=== PATIENT | male | born 1995 | race Caucasian/White ===

== ENCOUNTER 2019-12-09 20:15 | Emergency (ER) | payer SELFPAY ==
[2019-12-09 20:19] VITALS: BP 133/77; PULSE 68; RESP 17; TEMP 36.9; O2SAT 98; BMI 21.7
--- NOTE | 2019-12-09 20:47 | ED_ITS ---
HPI - Burn/Smoke Inhalation General: Chief complaint: Burn/Smoke Inhalation Stated complaint: burn Time Seen by Provider: 12/09/19 20:31 History of Present Illness: HPI Narrative: Patient is a 24-year-old male comes to the ED with burn on his abdomen. Patient says he was cooking just prior to arrival and some hot grease splashed on his abdomen. He now has some redness and some blistering. Patient describes having some mild stinging pain does not want any pain medications while here in the ED. Associated symptoms: Deny chest pain, fever(s), headache(s), nausea, neck pain or vomiting Review of Systems Const: Denies: fever(s), chills or fatigue Eyes: Denies: change in vision or eye discomfort ENMT: Denies: throat pain, odynophagia, nasal discharge or nasal congestion Card: Denies: chest pain, palpitations, edema, swelling of feet/ankles, dyspnea on exertion or orthopnea Resp: Denies: dyspnea, productive cough or non-productive cough GI: Denies: abdominal pain, nausea, vomiting, diarrhea, constipation or hematochezia : Denies: flank pain, difficulty urinating, dysuria or hematuria Musc: Denies: neck pain, back pain or extremity swelling Skin/Breast: Reports: new lesions (burn on abdomen); Denies: rash Neuro: Denies: headache(s), numbness in extremities or weakness in extremities Physical Exam Const: COMMON NORMALS: no acute distress, patient oriented x3, healthy appearing and alert GENERAL APPEARANCE: cooperative and comfortable HENMT: COMMON NORMALS: normocephalic HEAD & SCALP: normocephalic MOUTH: Normal oral and palatal mucosa present THROAT: posterior oropharynx normal and uvula midline Neck/C-Spine: COMMON NORMALS: supple GENERAL: Yes normal visual inspection Resp: COMMON NORMALS: normal respiratory effort, No retractions, No use of accessory muscles and clear to auscultation bilaterally AUSCULTATION: clear to auscultation bilaterally Cardio: COMMON NORMALS: regular rate, regular rhythm, S1 normal heart sound present, S2 normal heart sound present, No gallops present (Cardio), No clicks present (Cardio), No murmurs present (Cardio) and Peripheral pulses 2+ throughout RATE: regular rate RHYTHM: regular rhythm HEART SOUNDS: S1 normal heart sound present and S2 normal heart sound present PERIPHERAL PULSES: Peripheral pulses 2+ throughout GI: COMMON NORMALS: Normal to inspection, nondistended, normoactive bowel sounds present, Soft to palpation, non-tender and no masses PALPATION: Yes Soft to palpation : COMMON NORMALS: Yes no CVA tenderness BLADDER/KIDNEY EXAM: Yes no CVA tenderness Back/Pelvis: COMMON NORMALS: no CVA tenderness Extremity: COMMON NORMALS: normal to inspection Neuro: COMMON NORMALS: patient oriented x3 and moves all extremities SENSORIUM/ORIENTATION: Yes alert Skin: NARRATIVE SKIN EXAM: Patient has multiple burn cassidy with some erythema and blistering present on right side of abdomen. Second-degree burn and or partial-thickness burn. Course Vital Signs: Vital signs: Vital Signs Temperature 98.4 F 12/09/19 20:19 Pulse Rate 74 12/09/19 21:04 Respiratory Rate 18 12/09/19 21:04 Blood Pressure 144/75 12/09/19 21:04 Pulse Oximetry 98 12/09/19 21:04 MDM - Burn/Smoke Inhalation MDM Narrative: Medical decision making narrative: Patient is a 24-year-old male who comes to the ED with skin burn on abdomen from cooking grease. Physical exam shows partial-thickness/second-degree burn on right side of the abdomen. Neosporin ointment was applied on suarez while here in the ED. Patient was sent home with a prescription for Neosporin ointment. I placed an order with case management for patient to be referred to wound care clinic to evaluate his burn. Return to ED precautions given and I discussed with patient signs of infection to look for. Patient understood and agreed with plan. Discharge Plan Discharge Patient Disposition: Home Clinical Impression: Second degree burn of abdomen Qualifiers: Encounter type: initial encounter Qualified Code(s): T21.22XA - Burn of second degree of abdominal wall, initial encounter Condition: Stable Prescriptions: New Neosporin ([id number]) 3.5mg-400 unit- 5,000 unit/gram ointment 1 applic TOPICAL BID Qty: 28.3 RF: 0 Discharge Orders: Discharge Order (Routine); Ordered 12/09/19 Ordered By: Tyson Cruz Discharge Diet: Regular Discharge Activity: Increase activity as tolerated Patient Instructions: Partial Thickness Burn (ED) Activity Restrictions/Additional Instructions: Follow-up with medical provider as directed in 7-10 days. Also case management should be contacting you in the next several days to set up an appointment with wound clinic so they can reevaluate burn and see how it is healing. Take medications as prescribed. Apply Neosporin twice a day on burn. Do not pop blisters and allow for them to pop on their own. return to the ER or your medical provider if condition worsens. Please read and understand discharge instructions. If any questions, please ask. Discharge Date/Time: 12/09/19 21:08 Coding Level of Care Code ED Recessing Machine Operator for Monica Smith Exam Comprehensive
[2019-12-09 21:04] VITALS: BP 144/75; PULSE 74; RESP 18; O2SAT 98
--- NOTE | 2019-12-10 10:44 | DCPLANNER ---
gas well drilling manager had message to schedule a follow up appointment for patient with Wound Care. gas well drilling manager called the Wound Care clinic, spoke with Felicia. A follow up appointment was scheduled for patient for Monday, December 16, 2019 at 1:[address] Nguyen. gas well drilling manager called patient and informed patient of the scheduled appointment. Patient stated that he would attend the appointment.
--- NOTE | 2020-01-02 09:57 | DCPLANNER ---
Patient did attend appointment scheduled for 12.16.19 with Wound Care.
== END 2019-12-09 21:08 | disposition home or self-care (01) ==
PROVIDERS: Emergency Provider Physician Assistant
DX: T21.22XA Burn of second degree of abdominal wall, initial encounter (principal); X10.2XXA Contact with fats and cooking oils, initial encounter
CPT/HCPCS: 12345; 99281; 99282

== ENCOUNTER 2019-12-16 12:50 | Outpatient (CLI) | payer SELFPAY | END 2019-12-16 12:51 | disposition home or self-care (01) | LOC: WOUND 12:51 | PROVIDERS: Visit Provider Thoracic Surgery (Cardiothoracic Vascular Surgery) | DX: T21.22XA Burn of second degree of abdominal wall, initial encounter (principal); X08.8XXA Exposure to other specified smoke, fire and flames, initial encounter | CPT/HCPCS: 99212 ==

== ENCOUNTER → 2020-01-16 09:06 | Outpatient (BNVA) | payer OTHER, SELFPAY | PROVIDERS: Visit Provider Nurse Practitioner Family | DX: Z11.59 Encounter for screening for other viral diseases (principal); Z20.828 Contact with and (suspected) exposure to other viral communicable diseases; J06.9 Acute upper respiratory infection, unspecified | CPT/HCPCS: 87635 ==

== ENCOUNTER → 2020-12-24 10:43 | Outpatient (BNVA) | payer OTHER, SELFPAY | PROVIDERS: Visit Provider Nurse Practitioner Family | DX: Z20.822 Contact with and (suspected) exposure to COVID-19 (principal) | CPT/HCPCS: 87635 ==

== ENCOUNTER → 2020-12-28 15:28 | Outpatient (BNVA) | payer SELFPAY | PROVIDERS: Visit Provider Nurse Practitioner Family | DX: Z20.822 Contact with and (suspected) exposure to COVID-19 (principal) | CPT/HCPCS: 87426 ==

== ENCOUNTER → 2022-08-02 10:05 | Outpatient (BNVA) | payer OTHER, SELFPAY | PROVIDERS: PCP Nurse Practitioner Family; Visit Provider Nurse Practitioner Family | DX: R42 Dizziness and giddiness (principal); R53.83 Other fatigue | CPT/HCPCS: 80053; 80061; 84443; 85025 ==

== ENCOUNTER 2022-09-17 18:51 | Emergency (ER) | payer SELFPAY ==
--- NOTE | 2022-09-17 19:22 | XRR_ITS ---
PROCEDURE INFORMATION: Exam: XR Right Foot Exam date and time: 09/17/2022 7:25 PM Age: 27 years old Clinical indication: Injury or trauma; Fall; Swelling (edema); Ankle; Right TECHNIQUE: Imaging protocol: Radiologic exam of the right foot. Views: 3 or more views. COMPARISON: No relevant prior studies available. FINDINGS: Bones/joints: Normal. Soft tissues: Normal. XR/XR foot RT min 3V* [id number] IMPRESSION: No acute findings.
[2022-09-17 19:35] VITALS: BP 116/70; PULSE 64; RESP 12; TEMP 36.8; O2SAT 95; BMI 26.4
--- NOTE | 2022-09-17 19:44 | XRR_ITS ---
PROCEDURE INFORMATION: Exam: XR Right Ankle Exam date and time: 09/17/2022 8:02 PM Age: 27 years old Clinical indication: Injury or trauma; Fall; Swelling (edema); Ankle; Right TECHNIQUE: Imaging protocol: Radiologic exam of the right ankle. Views: 3 or more views. COMPARISON: CR (LOW EXM, ) 09/17/2022 7:25 PM FINDINGS: Bones/joints: Small calcific densities inferior to lateral malleolus may represent acute avulsion(s) or relate to chronic/remote injury. Soft tissues: Soft tissue swelling noted over lateral malleolus. XR/XR ankle RT min 3V* [id number] IMPRESSION: Small calcific densities inferior to lateral malleolus may represent acute avulsion(s) or relate to chronic/remote injury.
--- NOTE | 2022-09-17 19:49 | ED_ITS ---
HPI - Extremity Problem General: Chief complaint: Extremity Injury, Lower Stated complaint: right foot injury Time Seen by Provider: 09/17/22 19:22 Source: patient Mode of arrival: ambulatory Limitations: no limitations History of Present Illness: 19-year-old male states that very before arrival he jumped off roughly 2 foot ledge landed on the ground he states he rolled his right ankle felt a pop in the right ankle he is got swelling over the right lateral portion he states he has pain he rates a 3 out of 10 he states he is able to walk on it but is quite painful is much improved with rest denies any near hip pain. Associated symptoms: Deny chest pain, fever(s) or rash Review of Systems Const: Denies: fever(s), chills or body aches ENMT: Denies: throat pain or dental pain Card: Denies: chest pain Resp: Denies: dyspnea GI: Denies: abdominal pain, nausea, vomiting or diarrhea Musc: Reports: extremity pain; Denies: neck pain or back pain Skin/Breast: Denies: rash Neuro: Denies: headache(s) PFSH ED PFSH: Social History Smoking and tobacco status: never smoked Second hand smoke exposure: No Smoking risk assessment/counseling performed?: No Alcohol intake: never Desire information about alcohol rehabilitation?: No Counseling given: No Substance/Drug Use: never Desire information about substance/drug rehabilitation?: No Counseling given: No Adopted: No Caregiver/support person: No Lives independently: Yes Household members: significant other Housing: Apartment Marital status: Single Number of children: 1 Highest education level completed: High School Graduate service: No Current occupational status: employed Physical Exam Const: COMMON NORMALS: no acute distress and patient oriented x3 HENMT: COMMON NORMALS: normocephalic and atraumatic HEAD & SCALP: normocephalic and atraumatic Eye: COMMON NORMALS: conjunctivae normal CONJUNCTIVA: Yes conjunctivae normal Chest: COMMONS NORMALS: normal inspection of the chest Resp: COMMON NORMALS: normal respiratory effort Cardio: COMMON NORMALS: regular rate RATE: regular rate GI: INSPECTION: Yes normal to inspection Extremity: OTHER: Swelling over right lateral ankle some tenderness no obvious deformity Neuro: COMMON NORMALS: patient oriented x3 Psych: COMMON NORMALS: mental status grossly normal Skin: COMMON NORMALS: no rashes or lesions noted GENERAL SKIN EXAM: no rashes or lesions noted Course Vital Signs: Vital signs: Vital Signs Temperature 98.3 F 09/17/22 19:35 Pulse Rate 64 09/17/22 19:35 Respiratory Rate 12 09/17/22 19:35 Blood Pressure 116/70 09/17/22 19:35 Pulse Oximetry 95 09/17/22 19:35 Oxygen Delivery Me thod Room Air 09/17/22 19:35 MDM - Extremity (Nontraumatic) Medical Decision Making Patient presents with an ankle sprain x-ray shows no fracture he is tender and having hard time walking on it we will place him in an Abbe wrap crutches he is to be nonweightbearing we will get him follow-up with the podiatry he is return if worsening he understands agrees to plan. Lab Data Radiology Impressions Foot X-Ray 09/17/22 19:22 IMPRESSION: No acute findings. Discharge Plan Discharge Patient Disposition: Home Clinical Impression: Ankle sprain and strain Condition: Stable Prescriptions: New naproxen [Naprosyn] 500 mg tablet 500 mg PO BID PRN (Reason: pain) Qty: 20 0RF No Action cetirizine 10 mg tablet 10 mg PO DAILY Qty: 30 0RF Discharge Orders: Discharge ED (Routine); Ordered 09/17/22 Ordered By: Santiago Jung Referrals: Amarilis Amin FNP-C [Primary Care Provider] - Castillo Zaidi DPM [Physician] - 1-3 days Discharge Diet: Advance as tolerated Discharge Activity: Limit activity as instructed and Use walker/crutches as instructed Patient Instructions: Ankle Sprain (ED) Coding Level of Care Code ED Newspaper Inserter for Monica Smith
[2022-09-17 20:12] VITALS: BP 133/78; PULSE 18; RESP 18; O2SAT 98
--- NOTE | 2022-09-18 08:50 | DCPLANNER ---
Addendum entered by Tresa Orellana 09/19/22 09:17: litigation manager received the following message from the ortho clinic regarding follow up appointment. Pts phone number in chart and contact phone for [facility] are out of service. If you are able to track down an updated number, please let us know Original Note: litigation manager had message to schedule a follow up appointment for patient with podiatry. litigation manager sent patients to the front office staff at podiatry. Patients information will be printed and reviewed. Clinic will call patient with appointment information.
--- NOTE | 2022-09-18 11:33 | DCPLANNER ---
channel manager called patient due to no primary care - no answer at this time.
== END 2022-09-17 20:14 | disposition home or self-care (01) ==
PROVIDERS: Emergency Provider Emergency Medicine
DX: S93.401A Sprain of unspecified ligament of right ankle, initial encounter (principal); S96.911A Strain of unspecified muscle and tendon at ankle and foot level, right foot, initial encounter; X50.9XXA Other and unspecified overexertion or strenuous movements or postures, initial encounter; Y93.39 Activity, other involving climbing, rappelling and jumping off
CPT/HCPCS: 73610; 73630; 99283

== ENCOUNTER 2023-07-12 12:48 | Emergency (ER) | payer SELFPAY ==
[2023-07-12 12:56] VITALS: BP 112/71; PULSE 86; RESP 16; TEMP 36.9; O2SAT 98; BMI 22.4
--- NOTE | 2023-07-12 13:19 | XR_ITS ---
WS: [id number] Examination: XR lumbar spine 2-3V* [id number] Reason for Exam: low back pain, workplace injury Date: July 12, 2023 Comparison: None. Findings: The bone density and the pedicles are intact. There is no anterior wedging or compression. There is no subluxation Mild degenerative changes of the L4-5 disc are noted with subtle narrowing and small posterior osteop hytes are noted. Impression: There is no compression or subluxation Minimal degenerative changes at L4-5 are suspected.
--- NOTE | 2023-07-12 13:21 | ED_ITS ---
HPI - Back Pain/Injury 2 General: Chief Complaint: Back Pain/Injury Stated Complaint: back pain Time Seen by Provider: 07/12/23 13:06 Source: patient Mode of arrival: wheelchair Limitations: no limitations History of Present Illness: 28yo male presents with mother for evalu ation of right-sided low back pain with numbness in his legs that started this morning while at work. 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 He reports that the end was still on the stack and he was attempting to pick it back up when he had sharp pain in his right low back. States that he did fall to the ground and had numbness in both legs at that time. He reports that the tie did not make contact with him. States he had to have assistance getting off the ground. Reports that he did have 2 extra strength Tylenol immediately after the injury, but he is still having pain. Reports this occurred between [id number] this morning. He denies previous back surgery, previous significant back injury, groin numbness/tingling, incontinence, decreased sensation bilateral lower extremities, any other concern at this time. Associated symptoms: Reports difficulty walking (painful); Deny fever(s) Review of Systems 2 Const: Denies: fever(s) Card: Denies: chest pain Resp: Denies: dyspnea Musc: Reports: back pain (right low back) Neuro: Reports: numbness in extremities and difficulty walking (painful); Denies: weakness in extremities or sensory changes PFSH ED 2 PFSH: Social History Smoking and tobacco/nicotine status: never used tobacco/nicotine Second hand smoke exposure: No Alcohol intake: never Substance/Drug Use: never Adopted: No Caregiver/support person: No Lives independently: Yes Household members: significant other Housing: Apartment Marital status: Single Number of children: 1 Highest education level completed: High School Graduate service: No Current occupational status: employed Physical Exam 2 Const: COMMON NORMALS: no acute distress, patient oriented x3 and alert G ENERAL APPEARANCE: cooperative ORIENTATION/CONSCIOUSNESS: Yes awake OTHER: Patient is sitting reclined on the stretcher in no acute distress. He is able to give history with no difficulty. He is able to complete exam with no difficulty. Mother is at bedside HENMT: COMMON NORMALS: normocephalic HEAD & SCALP: normocephalic MOUTH: Normal oral and palatal mucosa present Eye: GENERAL EYE: appearance normal, both eyes and all related structures Neck/C-Spine: COMMON NORMALS: full ROM CERVICAL SPINE: Yes cervical ROM normal, No Cervical spine tenderness and No step off deformity Chest: CHEST: Yes Symmetrical chest wall rise Resp: COMMON NORMALS: normal respiratory effort EFFORT & INSPECTION: Yes able to speak in complete sentences Cardio: COMMON NORMALS: regular rate RATE: regular rate Back/Pelvis: LUMBAR SPINE/LOWER BACK: No lumbar spinal tenderness, Yes straight leg raise positive right Straight leg raise positive details right: at 30 degrees and Yes straight leg raise positive left Straight leg raise positive details left: at 30 degrees OTHER: No midline spine tenderness to palpation or step-offs noted. TTP right low back/buttock. No ecchymosis, abrasions, obvious skin abnormalities noted. Normal and equal plantarflexion and dorsiflexion of the feet bilaterally. Positive flexion of great toes bilaterally. Sensation intact and equal bilaterally. Pain with straight leg raise bilaterally. Pedal pulses 2+, capillary refill less than 3 seconds BACK IMAGE (MALE): 1. tenderness to palpation Neuro: COMMON NORMALS: patient oriented x3 SENSORIUM/ORIENTATION: Yes alert Psych: APPEARANCE: Yes grossly normal ATTITUDE: Yes calm Course 2 Reevaluation(s): Reevaluation #1: Discussed preliminary x-ray findings with patient and family. Patient was able to ambulate down the leon to the restroom without assistance, but did have pain in the right low back. Patient is agreeable to IM injections to help with his discomfort and does have a route driver salesperson today Time: 14:43 Vital Signs: Vital signs: Vital Signs Temperature 98.4 F 07/12/23 12:56 Pulse Rate 80 07/12/23 13:54 Respiratory Rate 16 07/12/23 12:56 Blood Pressure 133/71 07/12/23 13:54 Pulse Oximetry 100 07/12/23 13:54 Oxygen Delivery Me thod Room Air 07/12/23 13:54 MDM - Back Pain/Injury Medical Decision Making 28yo male here with right-sided low back pain with numbness into bilateral lower legs that started between [id number] this morning after an injury at work where a railroad tie slid from the top of the stack. The tie did not fall into patient, but he did attempt to lift the end back on the stack, which is when he experienced the sharp pain in the right low back and numbness in the lower extremities. 2 extra strength Tylenol after the injury did not help with pain. Denies any previous back fracture, surgery, incontinence, groin numbness/tingling, lower extremity weakness, decreased sensation lower extremity, any other concern at this time. Patient is nontoxic in appearance. Vital signs are stable. Lumbar spine x-ray with no acute abnormalities noted. Suspect degeneration L4- L5. Discussed these findings with patient and family. Patient was able to ambulate down the leon to the restroom unassisted, but did have discomfort in the right lower back. Patient did receive orphenadrine and ketorolac while in the emergency department. Discussed with patient this is likely a strain, but he would need to follow-up with his doctor early next week for further evaluation. Short course tizanidine and ketorolac sent to patient's pharmacy to help with his discomfort. Activity modifications discussed. Recommend he follow-up with his doctor within the next several days for recheck and possible further imaging if symptoms do persist. Advised return to the emergency department if any rapid worsening symptoms, further injury, and as needed. Patient states understanding and has no further questions or concerns at this time. Differential Diagnosis Likely lumbar radiculopathy, sciatica and strain of lumbar region Medical Records I reviewed the patient's medical records. All radiology interpretation(s) finalized by discharge Discharge Plan Discharge Patient Disposition: Home Clinical Impression: Strain of lumbar region Qualifiers: Encounter type: initial encounter Qualified Code(s): S39.012A - Strain of muscle, fascia and tendon of lower back, initial encounter Condition: Stable Prescriptions: New tizanidine 4 mg tablet 4 mg PO Q8H PRN (Reason: muscle spasticity, pain) Qty: 20 0RF ketorolac 10 mg tablet 10 mg PO Q8H PRN (Reason: pain) 5 Days Qty: 20 0RF No Action Tylenol Ex Str Rapid Release 500 mg Tablet 1,000 mg PO Q6H PRN (Reason: Pain) Benadryl Allergy 25 mg Tablet 25 mg PO BEDTIME PRN (Reason: Allergy Symptoms) Discharge Orders: Discharge ED (Routine); Ordered 07/12/23 Ordered By: Giovani Zamorano Discharge Diet: Usual diet Discharge Activity: Increase activity as tolerated Patient Instructions: Low Back Strain (ED), Lower Back Exercises (ED) Activity Restrictions/Additional Instructions: Ketorolac and tizanidine have been sent to your pharmacy to help with pain and comfort. Please do not drive or operate heavy machinery while taking tizanidine Try to lifting and prolonged activities for the next 3 to 5 days. Other activity as tolerated. See provided handout with information about a low back strain and low back exercises. Please try these at exercises at least twice daily Follow-up with your doctor, schedule an appointment as soon as possible for recheck early next week Return to the emergency department if any rapid worsening symptoms, further injury, and as needed Stand Alone Forms: Work/School Release Coding Level of Care Code ED Coagulating Bath Mixer for Monica Smith
[2023-07-12 13:54] VITALS: BP 133/71; PULSE 80; O2SAT 100
[2023-07-12] MEDS: ketorolac 30 mg/mL INJ IM (14:49)
[2023-07-12] MEDS: orphenadrine 30 mg/mL Inj 2 mL 60 MG IM (14:51)
[2023-07-12 15:16] VITALS: BP 128/70; PULSE 66; O2SAT 97
== END 2023-07-12 15:18 | disposition home or self-care (01) ==
PROVIDERS: Emergency Provider Nurse Practitioner
DX: S39.012A Strain of muscle, fascia and tendon of lower back, initial encounter (principal); W20.8XXA Other cause of strike by thrown, projected or falling object, initial encounter; Y99.0 Civilian activity done for income or pay
CPT/HCPCS: 72100; 96372; 99284; J1885; J2360